=== PATIENT | male | born 1960 | race Caucasian/White ===

== ENCOUNTER 2022-09-28 08:08 | Emergency (ER) | payer OTHER, MEDICAID ==
[~2022-09-28] VITALS: Ht 177.8 cm; Wt 81.6 kg
--- NOTE | 2022-09-28 08:11 | NUR ---
BIBA BLS TO ER BED 2
[2022-09-28 08:14] VITALS: BP 145/75
[2022-09-28] MEDS ORDERED: MORPHINE SULFATE 4 MG/ML SYR IM ONE (08:35)
--- NOTE | 2022-09-28 08:35 | NUR ---
Lab at bedside for blood draw
--- NOTE | 2022-09-28 08:40 | NUR ---
61 y/o M [place] from [facility] c/o bilateral leg pain since yesterday. Patient A&Ox4, ambulatory with assistance, states bilateral leg pain since this morning. Patient also states tenderness to upper extremities. Denies trauma, injury, falls, nausea, vomiting, diarrhea, chest pain, SOB, dysuria, fever, chills, cough. Denies medications prior to arrival. Bed locked in lowest position, side rails x 2 for pt safety. PMH/Sx/Meds: dementia, DM, HTN, HLD Allergies: penicillin
--- NOTE | 2022-09-28 08:41 | NUR ---
RAD at bedside
[2022-09-28 09:02] LABS: BASOPHILS % (AUTO) 0.7 % (0.0-2.0); EOSINOPHILS # (AUTO) 0.2 K/uL (0-0.4); EOSINOPHILS % (AUTO) 3.3 % (0.0-4.0); HEMATOCRIT 39.4 % (36-52); HEMOGLOBIN 13.6 g/dL (12.0-18.0); LYMPHOCYTES # (AUTO) 1.7 K/uL (2.0-11.5); LYMPHOCYTES % (AUTO) 26.6 % (20.5-51.1); MEAN CORPUSCULAR HEMOGLOBIN 31 pg (27-31); MEAN CORPUSCULAR HGB CONC 35 g/dL (33-37); MEAN CORPUSCULAR VOLUME 88.7 fL (80-94); MONOCYTES # (AUTO) 0.8 K/uL (0.8-1.0); NEUTROPHILS # (AUTO) 3.6 K/uL (1.8-7.7); NEUTROPHILS % (AUTO) 56.4 % (42.2-75.2); PLATELET COUNT (AUTO) 232 K/uL (140-450); RED BLOOD CELL COUNT(AUTO) 4.44 MIL/uL (4.20-6.10); RED CELL DISTRIBUTION WIDTH 14.2 % (11.6-13.7); WHITE BLOOD COUNT (AUTO) 6.3 K/uL (4.8-10.8)
--- NOTE | 2022-09-28 09:07 | NUR ---
Dr. Sparrow evaluating patient at bedside
[2022-09-28 09:16] LABS: ALBUMIN 3.5 g/dL (3.4-5.0); ANION GAP 12.8 (8-16); CARBON DIOXIDE 29.8 mmol/L (21-32); CREATININE 0.6 mg/dL (0.6-1.3); POTASSIUM 3.6 mmol/L (3.5-5.1); TOTAL BILIRUBIN 0.4 mg/dL (0.0-1.0)
[2022-09-28 09:26] LABS: APPEARANCE,URINE CLEAR (CLEAR); BILIRUBIN,URINE NEGATIVE (NEGATIVE); BLOOD, URINE NEGATIVE (NEGATIVE); COLOR,URINE YELLOW (YELLOW); LEUKOCYTE ESTERASE ,URINE NEGATIVE (NEGATIVE); NITRITE, URINE NEGATIVE (NEGATIVE); UGLUCOSE NEGATIVE (NEGATIVE)
--- NOTE | 2022-09-28 10:24 | NUR ---
Patient resting in semi-fowlers position with director of research and development in place. Denies pain at this time; 0/10. Respirations even/unlabored. Bed locked in lowest position, side rails x 2 for pt safety/dementia hx.
[2022-09-28 10:25] VITALS: BP 158/71
--- NOTE | 2022-09-28 10:37 | NUR ---
REPORT GIVEN TO SAMANTHA AT [facility]. PHARMACY UPDATED.
[2022-09-28] MEDS ORDERED: IBUP-2213 PO (10:47)
--- NOTE | 2022-09-28 10:58 | NUR ---
Dain Byrne provided with status update regarding patient's ETA to facility. Patient discharged with v/s stable. Written and verbal after care instructions given and explained for Leg Cramps. Patient alert, oriented and verbalized understanding of instructions. Ambulatory with assistance to [employer] transportation back to [facility]. All questions addressed prior to discharge. ID band removed. Patient advised to follow up with PMD. Rx of Ibuprofen given. Patient educated on indication of medication including possible reaction and side effects. Opportunity to ask questions provided and answered.
== END 2022-09-28 10:58 | disposition home or self-care (01) ==
LOC: MED 08:08
DX: M79.661 Pain in right lower leg (principal); M79.662 Pain in left lower leg; Z88.0 Allergy status to penicillin; Z79.899 Other long term (current) drug therapy
CPT/HCPCS: 36415; 72170; 80053; 81003; 82550; 85025; 93005; 96372; 99285; J2270; Q0092